=== PATIENT | male | born 2000 | race Caucasian/White ===

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

== ENCOUNTER → 2021-10-17 15:35 | Outpatient (BNVA) | payer BC, SELFPAY | PROVIDERS: Family Provider Registered Nurse; PCP Registered Nurse; Visit Provider Nurse Practitioner | DX: J02.9 Acute pharyngitis, unspecified (principal); B96.89 Other specified bacterial agents as the cause of diseases classified elsewhere | CPT/HCPCS: 87880 ==

== ENCOUNTER → 2021-11-11 17:45 | Outpatient (BNVA) | payer BC, SELFPAY | PROVIDERS: Family Provider Registered Nurse; PCP Registered Nurse; Visit Provider Family Medicine | DX: S69.92XA Unspecified injury of left wrist, hand and finger(s), initial encounter (principal); X58.XXXA Exposure to other specified factors, initial encounter; M79.642 Pain in left hand; M79.89 Other specified soft tissue disorders | CPT/HCPCS: 73130 ==

== ENCOUNTER 2021-12-18 17:09 | Emergency (ER) | payer BC, SELFPAY ==
[2021-12-18 17:37] VITALS: BP 138/86; PULSE 70; RESP 16; TEMP 36.6; O2SAT 98
--- NOTE | 2021-12-18 18:41 | ED_ITS ---
HPI - Ear Problem General: Chief complaint: Ear Stated complaint: hearing loss Time Seen by Provider: 12/18/21 18:40 History of Present Illness: 21-year-old male patient comes in today for complaints of right ear pain with decreased hearing. Patient reports symptoms for last 2 days. Patient appears nontoxic. Patient appears in mild to no pain. Associated symptoms: Reports ear or mastoid pain Review of Systems General: Reports: 10 or more systems reviewed and unremarkable except in HPI and below ENMT: Reports: ear or mastoid pain and change in hearing PFSH ED PFSH: Medical History (Updated 12/18/21 @ 18:48 by LIGIA Lozada) Allergic rhinitis due to allergen Surgical History (Updated 12/14/21 @ 19:21 by Lito Ontiveros MD) Hx of eye surgery Social History Smoking and tobacco status: never smoked Adopted: No Caregiver/support person: Yes Lives independently: No Household members: family Physical Exam Const: COMMON NORMALS: alert HENMT: TYMPANIC MEMBRANE: TM abnormal TM laterality: right Details: erythematous and retracted Neck/C-Spine: COMMON NORMALS: full ROM Resp: COMMON NORMALS: normal respiratory effort Cardio: COMMON NORMALS: regular rate RATE: regular rate Neuro: SENSORIUM/ORIENTATION: Yes alert Skin: COMMON NORMALS: no rashes or lesions noted GENERAL SKIN EXAM: no rashes or lesions noted Course Vital Signs: Vital signs: Vital Signs Temperature 97.9 F 12/18/21 17:37 Pulse Rate 70 12/18/21 17:37 Respiratory Rate 16 12/18/21 17:37 Blood Pressure 138/86 12/18/21 17:37 Pulse Oximetry 98 12/18/21 17:37 MDM - Ear Medical Decision Making 21-year-old male patient comes in for right ear discomfort and decreased hearing. On exam patient's right tympanic membrane is erythematous and retracted. Posterior pharynx has some erythema. Differential diagnosis includes but not limited to otitis media, eustachian tube dysfunction, otalgia. We will go ahead and treat for otitis media with Augmentin and a dose of steroids. Encourage patient drink plenty of fluids and use acetaminophen and ibuprofen for pain and discomfort. Discharge Plan Discharge Patient Disposition: Home Clinical Impression: Otitis media Qualifiers: Otitis media type: unspecified nonsuppurative Laterality: right Qualified Code(s): H65.91 - Unspecified nonsuppurative otitis media, right ear Condition: Stable Prescriptions: New amoxicillin-pot clavulanate 875-125 mg tablet 1 tab PO BID Qty: 14 0RF No Action loratadine 10 mg tablet,disintegrating 10 mg PO DAILY Qty: 30 0RF fluticasone propionate 50 mcg/actuation spray,suspension 1 spray intranasal BID PRN (Reason: allergy symptoms) Qty: 16 0RF Rx Instructions: administer into each nostril diphenhydramine HCl [NightTime Sleep Aid (diphen)] 50 mg capsule 50 mg PO .qhs PRN (Reason: allergy symptoms) Qty: 30 0RF Rx Instructions: for post nasal drip Discharge Orders: Discharge ED (Routine); Ordered 12/18/21 Ordered By: Kamron Estrada Referrals: Darshan Aranda FNP [Primary Care Provider] - Discharge Diet: Usual diet Discharge Activity: Increase activity as tolerated Patient Instructions: Ear Infection (ED) Activity Restrictions/Additional Instructions: Take medications as directed. Drink plenty of water. Follow-up with primary care in 1 week for recheck. Return to ER for new concerns. Continue using Flonase nasal spray 1 spray twice a day. Coding Level of Care Code ED [employer] for Danilo Hansen
[2021-12-18] MEDS: amoxicillin-clav 875-125 mg Tablet 1 TAB PO (18:52)
[2021-12-18] MEDS: dexamethasone 4 mg Tablet 10 MG PO (18:52)
== END 2021-12-18 18:53 | disposition home or self-care (01) ==
PROVIDERS: Emergency Provider Nurse Practitioner Family; PCP Registered Nurse
DX: H65.91 Unspecified nonsuppurative otitis media, right ear (principal)
CPT/HCPCS: 99283; J8540

== ENCOUNTER 2022-05-17 12:58 | Outpatient (CLI) | payer BC, SELFPAY ==
--- NOTE | 2022-05-17 13:10 | XR_ITS ---
WS: [id number] EXAMINATION: XR lumbar spine 2-3V* [id number] L-SPINE : 3 views REASON FOR EXAM: M54.50 - Low back pain, unspecified COMPARISON: None available. ORDER DATE: 05/17/2022 1:25 PM FINDINGS: The lumbar vertebral bodies and the disc spaces are normal in width. In the lumbar vertebra, there i s no evidence of compression deformities or spondylolisthesis. XR/XR lumbar spine 2-3V* [id number] IMPRESSION: UNREMARKABLE LUMBAR SPINE STUDY
== END 2022-05-17 12:59 | disposition home or self-care (01) ==
LOC: RAD 13:00
PROVIDERS: PCP Registered Nurse; Visit Provider Registered Nurse
DX: M54.50 Low back pain, unspecified (principal); M79.604 Pain in right leg
CPT/HCPCS: 72100

== ENCOUNTER 2022-08-03 15:27 | Outpatient (CLI) | payer BC, SELFPAY ==
--- NOTE | 2022-08-03 16:00 | MR_ITS ---
WS: [id number] MRI LUMBAR SPINE NONCONTRAST HISTORY: M54.50 - Low back pain, unspecified COMPARISON: 04/05/2018 TECHNIQUE: Sagittal and axial multisequence imaging is submitted. Same vertebral body numbering pattern will be used today as on the prior study of 04/05/2018. Prior r eport described 12 thoracic vertebral bodies and 6 lumbar type vertebral bodies. Mild thoracolumbar curvature. Mild disc desiccation without narrowing of the disc spaces. No marrow edema or fractures. Schmorl's n ode inferior L5 vertebral body. Conus terminates normally at L1-2 disc level. L1-L2: Normal. L2-L3: Normal. L3-L4: Very mild disc bulging. No significant stenosis or disc protrusions. L4-L5: L4 retrolisthesis by 2 mm. There is very slight disc bulging. Mild ligamentum flavum and facet arthritis. No significant stenosis or disc protrusion. L5-L6: Very mild annular disc bulging with mild facet arthritis. 2 mm retrolisthesis of L5. There is a very tiny RIGHT paracentral disc protrusion contacting the ventral thecal sac. Small amount of flui d in the facet joints. Mild narrowing of the subarticular recesses and foramina. No high-grade stenos is. L6-S1: No stenosis. Paraspinal soft tissues are negative. MR/MR lumbar spine wo con* [id number] IMPRESSION: 1. No significant central or foraminal stenosis. 2. 2 mm retrolisthesis of L4 and L5. 3. 6 lumbar type vertebral bodies are identified and number. Numbering pattern remains similar to the study from 04/05/2018. 4. Very tiny RIGHT paracentral disc protrusion at L5-L6. No significant nerve root encroachment.
== END 2022-08-03 15:28 | disposition home or self-care (01) ==
LOC: RAD 15:32
PROVIDERS: PCP Registered Nurse; Visit Provider Registered Nurse
DX: M51.26 Other intervertebral disc displacement, lumbar region (principal)
CPT/HCPCS: 72148

== ENCOUNTER → 2023-06-20 15:23 | Outpatient (BNVA) | payer BC, SELFPAY | PROVIDERS: PCP Registered Nurse; Visit Provider Registered Nurse | DX: L60.8 Other nail disorders (principal) | CPT/HCPCS: 80053 ==

== ENCOUNTER 2024-01-16 09:30 | Outpatient (RCR) | payer BC, SELFPAY | END 2024-02-10 23:59 | disposition home or self-care (01) | LOC: SPT 09:30 | PROVIDERS: PCP Registered Nurse; Visit Provider Registered Nurse | DX: M51.37 Other intervertebral disc degeneration, lumbosacral region (principal) | CPT/HCPCS: 97110; 97161 ==

== ENCOUNTER 2024-02-11 06:30 | Outpatient (RCR) | payer BC, SELFPAY | END 2024-03-11 23:59 | disposition home or self-care (01) | LOC: SPT 06:30 | PROVIDERS: PCP Registered Nurse; Visit Provider Registered Nurse | DX: M51.37 Other intervertebral disc degeneration, lumbosacral region (principal) | CPT/HCPCS: 97110 ==

== ENCOUNTER → 2025-05-31 14:05 | Outpatient (BNVA) | payer BC, SELFPAY | PROVIDERS: PCP Registered Nurse; Visit Provider Emergency Medicine | DX: J06.9 Acute upper respiratory infection, unspecified (principal); J02.9 Acute pharyngitis, unspecified | CPT/HCPCS: 87426; 87880 ==